=== PATIENT | male | born 1955 | race Caucasian/White ===

== ENCOUNTER 2017-03-20 05:57 | Inpatient (IN) | payer OTHER ==
[2017-03-20] MEDS ORDERED: TRANEXAMIC ACID 1,000 MG in NS 100 ML IV ONE ×2 (06:00→08:30)
[2017-03-20] MEDS ORDERED: ROPIVACAINE 0.2% 80 MG, EPINEPHrine 0.2 MG, KETOROLAC TROMETHAMINE 30 MG, morphINE 10 M... IU ONE (06:00)
[2017-03-20] MEDS ORDERED: DEXAMETHASONE 4 MG/ML VIAL IVP ONE (06:14)
[2017-03-20] MEDS ORDERED: ceFAZolin 2 GM/SWFI 2 GM/20 ML SYR IVP ONE (06:14)
[2017-03-20] MEDS ORDERED: ACETAMINOPHEN 325 MG TAB PO ONE (06:14)
[2017-03-20] MEDS ORDERED: FAMOTIDINE 20 MG TAB PO ONE (06:14)
[2017-03-20] MEDS ORDERED: LIDOCAINE 1% 2 ML INJ ID PRN (06:51)
[2017-03-20] MEDS ORDERED: LR 1,000 ML IV ONE (06:51)
--- NOTE | 2017-03-20 06:54 | PDANEPAE ---
ANE History of Present Illness 62 year old male for right knee replacement. ANE Past Medical History - Cardiovascular History Hx Hypertension: No Hx Arrhythmias: No Hx Chest Pain: No Hx Coronary Artery / Peripheral Vascular Disease: No Hx CHF / Valvular Disease: No Hx Palpitations: No - Pulmonary History Hx COPD: No Hx Asthma/Reactive Airway Disease: No Hx Recent Upper Respiratory Infection: No Hx Oxygen in Use at Home: No Hx Sleep Apnea: No Sleep Apnea Screening Result - Last Documented: Positive Pulmonary History Comment: sinusitis - Neurologic History Hx Cerebrovascular Accident: No Hx Seizures: No Hx Dementia: No - Endocrine History Hx Diabetes: No Hypothyroid: No Hyperthyroid: No Obesity: no - Renal History Hx Renal Disorders: Yes - Liver History Hx Hepatic Disorders: No - Neurological & Psychiatric Hx Hx Neurological and Psychiatric Disorders: Yes Neurological / Psychiatric History Comment: depression,mild anxiety - Cancer History Hx Cancer: No - Congenital Disorder History Hx Congenital Disorders: No - GI History Hx Gastrointestinal Disorders: No - Chronic Pain History Chronic Pain: Yes (lower back pain) - Surgical History Prior Surgeries: remove growth within bladder, at [facility] ANE Review of Systems Review of systems is: negative Review of Systems: - Exercise capacity Exercise capacity: >=4 METS METS (RN): 5 METS ANE Patient History - Allergies Allergies/Adverse Reactions: No Known Allergies Allergy (Unverified 10/18/09 00:52) - Home Medications Home medications: home medication list seen and reviewed Home Medications: Atorvastatin Calcium [Lipitor 40 mg (*)] 80 mg PO DAILY 02/22/17 [Last Taken ] Carboxymethylcellulose 1% [Refresh Celluvisc (*)] 1 drop EACHEYE DAILY PRN 02/22 [Last Taken 03/06/17] DULoxetine [Cymbalta 60 MG (*)] 60 mg PO DAILY 02/22/17 [Last Taken 03/19/17 08: 00] Escitalopram Oxalate [Lexapro] 10 mg PO DAILY 02/22/17 [Last Taken 03/18/17] Tamsulosin HCl [Flomax 0.4 MG (*)] 0.4 mg PO DAILY 02/22/17 [Last Taken 09:30] Zolpidem Tartrate [Ambien 5MG (*)] 10 mg PO HS PRN 02/22/17 [Last Taken 03/18/17 ] traMADol [Ultram 50 mg (*)] 50 mg PO TID PRN 02/22/17 [Last Taken 03/19/17 22:00 ] Ibuprofen Ib 03/20/17 [Last Taken 03/11/17] Meloxicam 03/20/17 [Last Taken 02/21/17] Warfarin Sodium 03/20/17 [Last Taken 03/19/17 19:30] - NPO status NPO Status: no food or drink >8 hours NPO Since - Liquids (Date): 03/19/17 NPO Since - Liquids (Time): 19:30 NPO Since - Solids (Date): 03/19/17 NPO Since - Solids (Time): 19:00 - Anes Hx Anes Hx: no prior problems - Smoking Hx Smoking Status: Never smoked Marijuana use: No - Alcohol Use Alcohol Use: Rarely - Family Anes Hx Family Anes Hx: neg - N/A Family Hx Anesthesia Complications: none ANE Labs/Vital Signs - Vital Signs Vital Signs: reviewed preoperatively; see RN documention for details Blood Pressure: 116/78 Heart Rate: 65 Respiratory Rate: 20 O2 Sat (%): 90 Height: 180.34 cm Weight: 83.915 kg ANE Physical Exam - Airway Neck exam: FROM Mallampati Score: Class 2 Mouth exam: normal dental/mouth exam - Pulmonary Pulmonary: no respiratory distress - Cardiovascular Cardiovascular: regular rate and rhythym - ASA Status ASA Status: II ANE Anesthesia Plan Anesthesia Plan: general endotracheal anesthesia, spinal Regional Anesthesia: single shot NB, adductor canal FNB Total IV Anesthesia: No
[2017-03-20] MEDS ORDERED: ceFAZolin 1 GM/5 ML SYR ONE (07:05)
[2017-03-20] MEDS ORDERED: PROPOFOL/EMULSION 500 MG/50 ML BOTTLE IV ONE ×3 (07:07→09:27)
[2017-03-20] MEDS ORDERED: BUPIVACAINE/DEXTROSE 7.5MG/ML 2 ML SPINAL AMP SP ONE (07:10)
[2017-03-20] MEDS ORDERED: ROPIVACAINE HCL 150 MG/30 ML INJ ONE (07:10)
[2017-03-20] MEDS ORDERED: MIDAZOLAM 2 MG/2 ML VIAL ONE (07:56)
[2017-03-20] MEDS ORDERED: ONDANSETRON 4 MG/2 ML VIAL IVP PRN ×2 (08:08→10:19)
[2017-03-20] MEDS ORDERED: NALOXONE HCL 0.4 MG/ML INJ IVP PRN (08:08)
[2017-03-20] MEDS ORDERED: HYDROmorphONE/DILAUDID 1 MG/ML INJ IVP PRN (08:08)
[2017-03-20] MEDS ORDERED: LR 500 ML IV PRN (08:08)
[2017-03-20] MEDS ORDERED: fentaNYL 100 MCG/2 ML INJ IVP PRN (08:08)
[2017-03-20] MEDS ORDERED: OXYCODONE/APAP 5/325 TAB PO PRN (08:08)
[2017-03-20] MEDS ORDERED: *INFUSION*TRANEX ACID 1,000 MG/NS 100 ML IV ONE (08:30)
[2017-03-20] MEDS ORDERED: PROMETHAZINE HCL 25 MG SUPPR PR PRN (10:19)
[2017-03-20] MEDS ORDERED: POLYETHYLENE GLYCOL 3350 17 GM PKT PO PRN (10:19)
[2017-03-20] MEDS ORDERED: ONDANSETRON DISINTEGRATING 4 MG TAB PO PRN (10:19)
[2017-03-20] MEDS ORDERED: LACTULOSE 20 GM/30 ML UDCUP PO PRN (10:19)
[2017-03-20] MEDS ORDERED: diphenhydrAMINE 25 MG CAP PO PRN (10:19)
[2017-03-20] MEDS ORDERED: MAGNESIUM HYDROXIDE 30 ML UDCUP PO PRN (10:19)
[2017-03-20] MEDS ORDERED: PROMETHAZINE HCL 25 MG/ML INJ IVP PRN (10:19)
[2017-03-20] MEDS ORDERED: TEMAZEPAM 15 MG CAP PO PRN (10:19)
[2017-03-20] MEDS ORDERED: KETOROLAC 30 MG/1 ML SDV IVP PRN (10:19)
[2017-03-20] MEDS ORDERED: DIPHENOXYLATE/ATROPINE LOMOTIL 1 TAB PO PRN (10:19)
[2017-03-20] MEDS ORDERED: CYCLOBENZAPRINE 10 MG TAB PO PRN (10:19)
[2017-03-20] MEDS ORDERED: BISACODYL 10 MG SUPP PR PRN (10:19)
[2017-03-20] MEDS ORDERED: METOCLOPRAMIDE 10 MG/2 ML VIAL IVP PRN (10:19)
--- NOTE | 2017-03-20 10:26 | POSTOPPROG ---
Post Op Note Date of Operation: 03/20/17 Surgeon: Paige Tucker Curing Machine Operator: Joceline Pickett PA-C Anesthesia: Spinal Pre-op Diagnosis: R knee osteoarthritis Post-op Diagnosis: R knee osteoarthritis Procedure: R TKA Findings: See full dictation Inf/Abcess present in the surg proc area at time of surgery?: No Depth: Deep Incisional (Fascial) EBL: 100-500 Drains: Darrell Duque
[2017-03-20] MEDS ORDERED: LR 1,000 ML IV SCH (10:30)
[2017-03-20] MEDS ORDERED: fentaNYL 100 MCG/2 ML INJ ONE (10:36)
[2017-03-20] MEDS: ACETAMINOPHEN 325 MG TAB PO SCH ×3 (12:14→23:46)
--- NOTE | 2017-03-20 12:56 | POSTANESTH ---
Post Anesthetic Evaluation Cardiovascular Status: Normal, Stable, Similar to Pre-Op Cond Respiratory Status: Normal, Stable, Similar to Pre-op Cond. Level of Consciousness/Mental Status: Can Participate in Eval, Alert and Oriented Pain Control: Adequate, Prn Tx Ordered Nausea/Vomiting Control: Adequate, Prn Tx Ordered Complications Possibly Related to Anesthesia: None Noted
[2017-03-20] MEDS: oxyCODONE IR 5 MG TAB PO PRN ×4 (13:50→21:05)
[2017-03-20] MEDS: ceFAZolin 2 GM/DEXTROSE 100 ML IV SCH ×2 (13:51→21:06)
[2017-03-20] MEDS ORDERED: WARFARIN SODIUM 5 MG TAB PO SCH (16:00)
--- NOTE | 2017-03-20 20:56 | GOP ---
[f rep st] OPERATIVE REPORT DATE OF OPERATION: 03/20/2017 SURGEON: Jarrod Tucker MD LUNG PULLER: Joceline Art PA-C. The use of a rn neurosurgical was required for retraction and surgical exposure. ANESTHESIA: Spinal. PREOPERATIVE DIAGNOSIS: Severe osteoarthritis of the right knee. POSTOPERATIVE DIAGNOSIS: Severe osteoarthritis of the right knee. PROCEDURE PERFORMED: Right total knee arthroplasty. FINDINGS: INDICATIONS: This is a 62-year-old male with longstanding and progressive osteoarthritis of the righ t knee. It is becoming increasingly severely disabling, and he has failed nonoperative treatment, be ing admitted for surgical care. DESCRIPTION OF PROCEDURE: After an adequate spinal anesthetic was obtained and IV antibiotics were a dministered, the patient's right lower extremity was prepped and draped in the usual sterile fashion. The limb was exsanguinated with the Esmarch and the tourniquet elevated to 300 mmHg pressure. The Farmstr leg-holding device was utilized with adequate padding. A midline incision was placed over the right knee. Dissection was carried down through the subcutane ous tissues. Hemostasis was obtained using electrocautery. A medial arthrotomy was performed. The patella dislocated laterally, exposing the joint. There was severe [id number] osteoarthritis invol ving the medial compartment with some bone erosion on the tibia, with severe disease in the patellofe moral compartment as well. Medial and lateral meniscal remnants were excised, as was the ACL. Osteo phytes were removed. The intramedullary canal of the distal femur was entered. The distal femoral cutting jig was now sarah lied in a 5-degree valgus alignment. 9 mm of distal femur was resected. The femur was sized to a #7 component. The anterior/posterior jig was applied in approximately 3 deg kaleb of external rotation, commensurate with the transepicondylar axis. The anterior, posterior, and chamfer cuts were now performed in the routine fashion. The intramedullary tibial cutting jig was applied. Approximately 1 mm was resected medially, with 10 mm laterally, perpendicular to the long axis of the tibia, with 3 degrees of posterior slope, preser ving the posterior cruciate ligament. Posterior femoral osteophytes were removed. The tibia was sized to a 7 component as well. A trial reduction at this point using a 7 femur, 7 tibia, and 9 mm insert resulted in full extension and flexion, with excellent varus/valgus stability through a full range of motion, and the knee was w ell balanced in both flexion and extension. The patella was measured and approximately 9 mm resected. This was sized to a 41 component. The pat ellar lug holes were drilled, and with a 41 mm trial patellar component, patellar tracking was normal . Tibial tray rotation was marked. The femoral lug holes were punched in the routine fashion. The proximal tibia was prepared with the keel punch in the routine fashion. The first batch of cement was mixed, and the proximal tibia prepared with pulsatile lavage. The 7 tibial tray was cemented into place and held firm while the cement hardened. Excess cement was removed. A bone plug was placed in the distal femoral hole. A second batch of cement was mixed. The distal f emoral and patellar surfaces were prepared with pulsatile lavage. The size 7 femoral component was impacted into place, excess cement was removed, and the knee was ext ended with a 9 mm trial insert. The 41 mm patellar button was cemented into place and held firm whil e the cement cured, using a patellar clamp. Excess cement was removed. Again, a trial reduction using a 9 mm insert resulted in full extension and flexion, with excellent v arus/valgus stability through a full range of motion, and the knee was well balanced. Patellar track ing was normal. After further copious irrigation, the final 9 mm poly insert was impacted into place, and again, exce llent range of motion and stability was confirmed. The tourniquet was deflated after 97-minute tourniquet time. Hemostasis was obtained using electroca utery. The deep layer was closed using interrupted #2 FiberWire and #1 Vicryl sutures over a 1/8-inc h drain, subcutaneous closure performed using interrupted 2-0 Vicryl suture, and the skin closed usin g stainless steel corinna. A cocktail comprised of Naropin, morphine, and Toradol was injected. Sterile dressings were applied, followed by an Branden wrap. There were no complications. The patient tolerated the procedure well and returned to the [facility] in stable condition. IMPLANTS UTILIZED: 1. Ayala and Nephew size 7, right, cruciate-retaining Legion Oxinium femoral component. 2. Size 7 Ayala [employer] Nephew Kristen II, right, nonporous tibial base plate. 3. Ayala [employer]hew size 41 mm Kristen II resurfacing patellar component. 4. Ayala [employer] Nephew size 7, 9 mm Legion CR XLPE, high-flexion articular insert. /[id number]/MODL
[2017-03-20] MEDS: SENNOSIDES/DOCUSATE SODIUM TAB PO SCH (21:05)
[2017-03-20] MEDS: FAMOTIDINE 20 MG TAB PO SCH (21:05)
[2017-03-21] MEDS: oxyCODONE IR 5 MG TAB PO PRN ×4 (00:50→12:13)
[2017-03-21 05:08] LABS: HEMOGLOBIN 10.7 g/dL (13.7-17.5)
[2017-03-21] MEDS: ACETAMINOPHEN 325 MG TAB PO SCH ×2 (05:19→12:13)
[2017-03-21 05:36] LABS: INR 1.55 (0.83-1.16); PROTIME(PATIENT) 18.6 SEC (12.0-15.0)
[2017-03-21 07:56] VITALS: BP 95/58; PULSE 70; RESP 16; TEMP 97.5; O2SAT 96
--- NOTE | 2017-03-21 08:22 | SOAPPROG ---
SOAP Progress Note Assessment/Plan: Assessment/Plan: s/p R TKA POD#1 - Continue pain management - Continue PT/OT - Ice to the R knee - SCDs/TEDs for mechanical prophylaxis - Warfarin for VTE chemoprophylaxis, pharmacy to dose - Finish course of antibiotic prophylaxis - Discharge pending PT/OT approval - Drain removal before discharge 03/21/17 08:19 Subjective: Pt states he is doing well, pain 4/10. Has been OOB with walker. Pt denies fever, chills, chest pain, SOB, abdominal pain, N/V/D, numbness, tingling, calf pain. Objective: Vital Signs Temp Pulse Resp BP Pulse Ox 36.4 C 70 16 95/58 L 96 03/21/17 07:56 03/21/17 07:56 03/21/17 07:56 03/21/17 07:56 03/21/17 07:56 Laboratory Results 03/21/17 04:51 03/20/17 03/21/17 03/22/17 05:59 05:59 05:59 Intake Total 1910 100 Output Total 721 200 Balance 1189 -100 PT 18.6 SEC (12.0-15.0) H 03/21/17 04:51 INR 1.55 (0.83-1.16) H 03/21/17 04:51 Physical Exam - Physical Exam General Appearance: alert, no apparent distress Cardiac/Chest: normal peripheral pulses Skin: normal color, warm/dry, other (incision site c/d/i) Extremities: normal inspection, normal capillary refill, swelling (R knee), other (Able to fire the quad with a SLR), No pedal edema, No calf tenderness, No Caroline's sign Neuro/Psych: no motor/sensory deficits, alert, normal mood/affect, oriented x 3 ICD10 Worksheet Patient Problems: Problems Problem Status Onset Osteoarthritis of right knee Acute - ICD10 Problem Qualifiers (1) Osteoarthritis of right knee Qualifiers: Osteoarthritis type: primary Qualified Code(s): M17.11 - Unilateral primary osteoarthritis, right knee
[2017-03-21] MEDS: FAMOTIDINE 20 MG TAB PO SCH (08:57)
[2017-03-21] MEDS: SENNOSIDES/DOCUSATE SODIUM TAB PO SCH (08:57)
[2017-03-21] MEDS ORDERED: TAMSULOSIN HCL 0.4 MG CAP PO SCH (09:00)
[2017-03-21] MEDS ORDERED: DULoxetine 60 MG CAP PO SCH (09:00)
[2017-03-21] MEDS ORDERED: ESCITALOPRAM OXALATE 10 MG TAB PO SCH (09:00)
[2017-03-21] MEDS ORDERED: ATORVASTATIN CALCIUM 40 MG TAB PO SCH (09:00)
--- NOTE | 2017-03-21 13:54 | ASDISCHSUM ---
Discharge Information Plan Status:Home with No Needs Medically Cleared to Leave: Discharge Date:03/21/2017 01:17 PM CM D/C Disposition:Home, Routine, Self-Care ADT D/C Disposition:Home, Routine, Self-Care Projected Discharge Date:03/21/2017 01:17 PM Transportation at D/C: Discharge Delay Reason: Follow-Up Date:03/21/2017 01:17 PM Discharge Slot: Final Diagnosis: Placement Information Patient Contact Information Contact Name:MARIA DE JESUS Relationship: Address:[address] City:[place] Alternate Phone: [facility]/Zip Code:[place] [address] Email: Financial Information Financial Class:HMO and PPO Plans Primary Plan Desc:[facility] Primary Plan Number:[id number] Secondary Plan Desc: Secondary Plan Number: Assessment Information [facility] CM Progress Note CM Note CM Note Notes: Pt medically stable for d/c, no CM d/c needs identified. Date Signed: 03/21/2017 01:53 PM Electronically Signed By:MARCELINO Malin Intervention Information
--- NOTE | 2017-03-22 10:13 | PDDCSUM ---
Discharge Summary Discharge Summary: 62y/o M with worsening R knee OA admitted to undergo an elective R TKA by Dr. Tucker. Pt received one dose of Ancef prior to surgery, and an additional 24 hours post-operatively for antibiotic prophylaxis. Procedure was without any complications. Pain was well managed. Pt was evaluated by PT and OT. SCDs/ TEDs for mechanical prophylaxis. Warfarin for VTE chemoprophylaxis. Patient was discharged with appropriate instructions and follow-up with Dr. Tucker post- operatively. Hospital course otherwise uneventful.
== END 2017-03-21 13:17 | disposition home or self-care (01) | DRG 470 ==
LOC: F3N 05:57
PROVIDERS: ADMIT Orthopaedic Surgery Sports Medicine; ATTEND Orthopaedic Surgery Sports Medicine
PROC: 0SRC0J9 Replacement of Right Knee Joint with Synthetic Substitute, Cemented, Open Approach (ICD-10-PCS; principal; 2017-03-20 07:25)
DX: M17.11 Unilateral primary osteoarthritis, right knee (principal); E78.5 Hyperlipidemia, unspecified
CPT/HCPCS: 97110-GP; 97116-GP; 97161-GP; 97165-GO; C1713; J0171; J0690; J1100; J1885; J2250; J2704; J2795; J3010